=== PATIENT | female | born 1970 | race African-American/Black ===

== ENCOUNTER 2018-12-01 10:40 | Emergency (ER) | payer MEDICAID ==
[~2018-12-01] VITALS: Ht 182.9 cm; Wt 106.0 kg
[2018-12-01 11:38] LABS: CLARITY URINE CLEAR (CLEAR); COLOR URINE YELLOW (YELLOW); KETONES URINE NEGATIVE (NEGATIVE); LEUKOCYTE ESTERASE URINE NEGATIVE (NEGATIVE); NITRITE URINE NEGATIVE (NEGATIVE); OCCULT BLOOD URINE NEGATIVE (NEGATIVE); PROTEIN URINE NEGATIVE (NEGATIVE); SPECIFIC GRAVITY URINE 1.024 (1.005-1.030); UROBILINOGEN URINE 0.2 E.U./dL (0.2-1.0)
[2018-12-01 12:58] LABS: BASOPHILS % 0.9 % (0.0-2.0); EOSINOPHILS % 2.1 % (0.0-5.0); HEMATOCRIT. 38.1 % (36.0-48.0); HEMOGLOBIN. 12.7 g/dL (12.0-16.0); MEAN CORPUSCULAR VOLUME 81.2 fL (81.0-99.0); MONOCYTES % 6.1 % (2.0-8.0); NEUTROPHILS % 60.9 % (40.0-76.0); PLATELET 217 x1000/uL (130-400); RED BLOOD CELL COUNT 4.69 mill/uL (4.2-5.4); RED CELL DISTRIBUTION WIDTH 14.2 % (11.6-14.6)
[2018-12-01 13:06] LABS: CHLORIDE 108 mEq/L (98-107)
[2018-12-01 13:39] VITALS: BP 121/83
== END 2018-12-01 13:41 | disposition home or self-care (01) ==
LOC: ER 11:04
DX: R10.9 Unspecified abdominal pain (principal)
CPT/HCPCS: 36415; 76770; 80048; 81025; 99284

== ENCOUNTER 2020-06-02 08:57 | Inpatient (IN) | payer MEDICAID ==
[~2020-06-02] VITALS: Ht 182.9 cm; Wt 97.5 kg
[2020-06-02 10:01] LABS: BASOPHILS % 0.6 % (0.0-2.0); EOSINOPHILS % 0.3 % (0.0-5.0); HEMATOCRIT. 43.1 % (36.0-48.0); HEMOGLOBIN. 14.5 g/dL (12.0-16.0); LYMPHOCYTES % 18.7 % (20.0-50.0); MEAN CORPUSCULAR HEMOGLOBIN 27.5 pg (28.0-32.0); MEAN PLATELET VOLUME 9.3 fl (7.4-10.4); MONOCYTES % 4.8 % (2.0-8.0); NEUTROPHILS % 75.6 % (40.0-76.0); PLATELET 245 x1000/uL (130-400); RED BLOOD CELL COUNT 5.26 mill/uL (4.2-5.4); RED CELL DISTRIBUTION WIDTH 13.4 % (11.6-14.6)
[2020-06-02 10:14] LABS: PROTHROMBIN TIME 10.9 sec (9.6-11.0)
[2020-06-02 10:16] LABS: CHLORIDE 108 mEq/L (98-107)
[2020-06-02 10:24] LABS: CREATINE KINASE 124 IU/L (26-192)
[2020-06-02] MEDS ORDERED: IBUPROFEN 600MG TABLET PO ONE (11:15)
[2020-06-02 11:23] LABS: CLARITY URINE CLEAR (CLEAR); COLOR URINE YELLOW (YELLOW); KETONES URINE 1+ (NEGATIVE); LEUKOCYTE ESTERASE URINE NEGATIVE (NEGATIVE); NITRITE URINE NEGATIVE (NEGATIVE); OCCULT BLOOD URINE NEGATIVE (NEGATIVE); PROTEIN URINE NEGATIVE (NEGATIVE); SPECIFIC GRAVITY URINE 1.015 (1.005-1.030); UROBILINOGEN URINE 0.2 E.U./dL (0.2-1.0)
[2020-06-02] MEDS ORDERED: CYCLOBENZAPRINE 10MG TABLET PO ONE (12:15)
[2020-06-02] MEDS ORDERED: MORPHINE SULFATE 2 MG/ML CPJ (NOT FOR IM USE) IV ONE (14:00)
[2020-06-02] MEDS ORDERED: KETOROLAC 30MG/ML VIAL IV ONE (14:00)
[2020-06-02] MEDS ORDERED: CLONIDINE 0.1MG TABLET PO PRN (16:15)
[2020-06-02] MEDS ORDERED: DIPHENHYDRAMINE 50MG/ML VIAL IV PRN (16:15)
[2020-06-02] MEDS ORDERED: ONDANSETRON HCL 4MG/2ML INJ IV PRN (16:15)
[2020-06-02 17:12] LABS: PHOSPHORUS 3.4 mg/dL (2.5-4.9)
[2020-06-02 22:00] VITALS: BP 134/77
[2020-06-02 23:00] VITALS: BP 134/77
[2020-06-02] MEDS: MORPHINE SULFATE 2 MG/ML CPJ (NOT FOR IM USE) IV PRN (23:19)
[2020-06-03 04:00] VITALS: BP 124/82
[2020-06-03 07:35] LABS: BASOPHILS % 0.8 % (0.0-2.0); EOSINOPHILS % 0.5 % (0.0-5.0); HEMATOCRIT. 42.1 % (36.0-48.0); HEMOGLOBIN. 14.4 g/dL (12.0-16.0); LYMPHOCYTES % 30.3 % (20.0-50.0); MEAN CORPUSCULAR HEMOGLOBIN 27.6 pg (28.0-32.0); MEAN CORPUSCULAR VOLUME 80.9 fL (81.0-99.0); MEAN PLATELET VOLUME 8.7 fl (7.4-10.4); MONOCYTES % 7.1 % (2.0-8.0); NEUTROPHILS % 61.3 % (40.0-76.0); PLATELET 255 x1000/uL (130-400); RED BLOOD CELL COUNT 5.21 mill/uL (4.2-5.4); RED CELL DISTRIBUTION WIDTH 13.3 % (11.6-14.6)
[2020-06-03 08:00] VITALS: BP 144/91
[2020-06-03] MEDS: MORPHINE SULFATE 2 MG/ML CPJ (NOT FOR IM USE) IV PRN ×2 (08:45→22:50)
[2020-06-03 09:20] LABS: CHLORIDE 105 mEq/L (98-107)
[2020-06-03 09:32] LABS: LDL CHOLESTEROL 150 mg/dL (5-100)
[2020-06-03 09:34] LABS: HDL CHOLESTEROL 45 mg/dL (40-59)
[2020-06-03 12:00] VITALS: BP 131/84
[2020-06-03 16:00] VITALS: BP 153/91
[2020-06-03] MEDS: ACETAMINOPHEN 325MG TABLET PO PRN (17:56)
[2020-06-03 20:00] VITALS: BP 133/85
[2020-06-04] VITALS: BP 130/79
[2020-06-04 04:00] VITALS: BP 123/82
[2020-06-04 08:00] VITALS: BP 146/84
[2020-06-04] MEDS: MORPHINE SULFATE 2 MG/ML CPJ (NOT FOR IM USE) IV PRN ×3 (09:44→23:01)
[2020-06-04] MEDS: CYCLOBENZAPRINE 10MG TABLET PO SCH ×3 (09:44→21:57)
[2020-06-04 12:00] VITALS: BP 110/83
[2020-06-04 16:00] VITALS: BP 121/84
[2020-06-04 20:00] VITALS: BP 114/71
[2020-06-05 04:00] VITALS: BP 112/85
[2020-06-05] MEDS: CYCLOBENZAPRINE 10MG TABLET PO SCH ×3 (06:12→21:04)
[2020-06-05 07:05] LABS: BASOPHILS % 0.8 % (0.0-2.0); EOSINOPHILS % 0.7 % (0.0-5.0); HEMATOCRIT. 44.5 % (36.0-48.0); HEMOGLOBIN. 15.2 g/dL (12.0-16.0); LYMPHOCYTES % 33.4 % (20.0-50.0); MEAN CORPUSCULAR HEMOGLOBIN 27.8 pg (28.0-32.0); MEAN CORPUSCULAR VOLUME 81.3 fL (81.0-99.0); MEAN PLATELET VOLUME 8.7 fl (7.4-10.4); MONOCYTES % 6.7 % (2.0-8.0); NEUTROPHILS % 58.4 % (40.0-76.0); PLATELET 256 x1000/uL (130-400); RED BLOOD CELL COUNT 5.48 mill/uL (4.2-5.4); RED CELL DISTRIBUTION WIDTH 13.1 % (11.6-14.6)
[2020-06-05 07:47] LABS: CHLORIDE 106 mEq/L (98-107)
[2020-06-05] MEDS: MORPHINE SULFATE 2 MG/ML CPJ (NOT FOR IM USE) IV PRN ×2 (07:53→12:02)
[2020-06-05] MEDS ORDERED: CYCL10TA7 PO (11:08)
[2020-06-05] MEDS ORDERED: HYDR-4001 MT (11:08)
[2020-06-05] MEDS ORDERED: ATOR10TA69 MT (11:08)
[2020-06-05] MEDS ORDERED: LORAZEPAM 1MG TABLET PO NR (14:54)
[2020-06-05] MEDS: DEXAMETHASONE 4MG/ML 1ML VIAL IV SCH ×2 (17:30→23:30)
[2020-06-05 20:00] VITALS: BP 103/73
[2020-06-06] VITALS: BP 114/71
[2020-06-06 04:00] VITALS: BP 118/83
[2020-06-06] MEDS: CYCLOBENZAPRINE 10MG TABLET PO SCH ×2 (05:45→13:32)
[2020-06-06] MEDS: DEXAMETHASONE 4MG/ML 1ML VIAL IV SCH ×2 (05:45→11:54)
[2020-06-06] MEDS: ACETAMINOPHEN 325MG TABLET PO PRN (05:58)
[2020-06-06 06:51] LABS: BASOPHILS % 0.2 % (0.0-2.0); HEMATOCRIT. 46.5 % (36.0-48.0); HEMOGLOBIN. 15.5 g/dL (12.0-16.0); LYMPHOCYTES % 16.1 % (20.0-50.0); MEAN CORPUSCULAR HEMOGLOBIN 27.5 pg (28.0-32.0); MEAN CORPUSCULAR VOLUME 82.3 fL (81.0-99.0); MEAN PLATELET VOLUME 8.8 fl (7.4-10.4); MONOCYTES % 1.4 % (2.0-8.0); NEUTROPHILS % 82.3 % (40.0-76.0); PLATELET 269 x1000/uL (130-400); RED BLOOD CELL COUNT 5.65 mill/uL (4.2-5.4); RED CELL DISTRIBUTION WIDTH 13.4 % (11.6-14.6)
[2020-06-06 06:54] LABS: CHLORIDE 103 mEq/L (98-107)
[2020-06-06 12:00] VITALS: BP 114/78
[2020-06-06] MEDS ORDERED: MED4 MT (15:07)
[2020-06-06 16:04] VITALS: BP 107/74
== END 2020-06-06 16:49 | disposition home or self-care (01) | DRG 347 ==
LOC: ER 08:57 → 6EST 15:48 → EDBEDREQ 15:56 → ENRESERV 20:03
PROVIDERS: ADMIT Internal Medicine; ATTEND Internal Medicine
DX: M54.32 Sciatica, left side (principal); M48.07 Spinal stenosis, lumbosacral region; M51.36 Other intervertebral disc degeneration, lumbar region; E78.00 Pure hypercholesterolemia, unspecified; R26.9 Unspecified abnormalities of gait and mobility
CPT/HCPCS: 36415; 72131; 72141; 72148; 73521; 80048; 80053; 80061; 81003; 82550; 83735; 84100; 84443; 85025; 93970; 96374; 97116; 97162; 97166; 97530; 97535; 99285; J1100; J2270

== ENCOUNTER 2020-06-07 20:58 | Inpatient (IN) | payer MEDICAID ==
[~2020-06-07] VITALS: Ht 182.9 cm; Wt 95.3 kg
[~2020-06-07 20:58] MED LIST: ATOR10TA69 MT; CYCL10TA7 PO; HYDR-4001 MT; MED4 MT
[2020-06-07] MEDS ORDERED: SODIUM CHLORIDE 0.9% 1,000 ML IV ONE (23:01)
[2020-06-07] MEDS ORDERED: ONDANSETRON HCL 4MG/2ML INJ IV STA (23:01)
[2020-06-07] MEDS ORDERED: MORPHINE SULFATE 4 MG/ML CPJ (NOT FOR IM USE) IV STA (23:01)
[2020-06-07 23:31] LABS: BASOPHILS % 0.4 % (0.0-2.0); EOSINOPHILS % 0.1 % (0.0-5.0); HEMATOCRIT. 40.3 % (36.0-48.0); HEMOGLOBIN. 13.8 g/dL (12.0-16.0); LYMPHOCYTES % 25.9 % (20.0-50.0); MEAN CORPUSCULAR HEMOGLOBIN 27.9 pg (28.0-32.0); MEAN CORPUSCULAR VOLUME 81.2 fL (81.0-99.0); MEAN PLATELET VOLUME 8.6 fl (7.4-10.4); NEUTROPHILS % 67.6 % (40.0-76.0); PLATELET 247 x1000/uL (130-400); RED BLOOD CELL COUNT 4.95 mill/uL (4.2-5.4); RED CELL DISTRIBUTION WIDTH 13.3 % (11.6-14.6)
[2020-06-07 23:33] LABS: CHLORIDE 100 mEq/L (98-107)
[2020-06-07] MEDS ORDERED: POTASSIUM CHLORIDE 20MEQ TABLET SR PO ONE (23:45)
[2020-06-07 23:47] LABS: PARTIAL THROMBOPLASTIN TIME 23.5 sec (23.4-31.0); PROTHROMBIN TIME 10.8 sec (9.6-11.0)
[2020-06-07 23:54] LABS: HCG SCREEN NEGATIVE
[2020-06-08] MEDS ORDERED: ONDANSETRON HCL 4MG/2ML INJ IV STA (00:48)
[2020-06-08] MEDS ORDERED: MORPHINE SULFATE 4 MG/ML CPJ (NOT FOR IM USE) IV STA (00:48)
[2020-06-08 00:59] LABS: CLARITY URINE CLEAR (CLEAR); COLOR URINE YELLOW (YELLOW); KETONES URINE NEGATIVE (NEGATIVE); LEUKOCYTE ESTERASE URINE 1+ (NEGATIVE); NITRITE URINE NEGATIVE (NEGATIVE); OCCULT BLOOD URINE NEGATIVE (NEGATIVE); PROTEIN URINE NEGATIVE (NEGATIVE); SPECIFIC GRAVITY URINE 1.016 (1.005-1.030); UROBILINOGEN URINE 0.2 E.U./dL (0.2-1.0)
[2020-06-08] MEDS ORDERED: CEFTRIAXONE 1 G PREMIX 50 ML IV ONE (01:30)
[2020-06-08] MEDS ORDERED: ONDANSETRON HCL 4MG/2ML INJ IV PRN (10:45)
[2020-06-08] MEDS ORDERED: HYDROCODONE/ACETAMINOPHEN 10/325MG TABLET PO PRN (10:45)
[2020-06-08] MEDS ORDERED: ACETAMINOPHEN 325MG TABLET PO PRN (10:45)
[2020-06-08] MEDS ORDERED: KETOROLAC 30MG/ML VIAL IV PRN (17:15)
[2020-06-08] MEDS: OXYCODONE HCL/ACETAMINOPHEN 5/325MG TABLET PO PRN ×2 (17:26→23:27)
[2020-06-08] MEDS: DEXAMETHASONE 4MG/ML 1ML VIAL IV SCH (18:12)
[2020-06-08 22:00] VITALS: BP 119/79
[2020-06-09] MEDS ORDERED: CEFTRIAXONE 1 G PREMIX 50 ML IV SCH (02:00)
[2020-06-09] MEDS: CEFTRIAXONE 1 G PREMIX 50 ML IV SCH (02:15)
[2020-06-09] MEDS: DEXAMETHASONE 4MG/ML 1ML VIAL IV SCH ×4 (02:15→17:43)
[2020-06-09 02:39] LABS: *AMPHETAMINES SCREEN URINE NEGATIVE (NEGATIVE); *BARBITURATES SCREEN URINE NEGATIVE (NEGATIVE); *BENZODIAZEPINES SCREEN URINE NEGATIVE (NEGATIVE); *COCAINE SCREEN URINE NEGATIVE (NEGATIVE); METHADONE URINE SCREEN NEGATIVE (NEGATIVE)
[2020-06-09 02:40] LABS: CANNABINOID URINE SCREEN PRESUMTIVE POSITIVE (NEGATIVE); OPIATES URINE SCREEN PRESUMTIVE POSITIVE (NEGATIVE); PHENCYCLIDINE URINE SCREEN NEGATIVE (NEGATIVE)
[2020-06-09 04:00] VITALS: BP 131/89
[2020-06-09] MEDS: OXYCODONE HCL/ACETAMINOPHEN 5/325MG TABLET PO PRN ×3 (04:16→19:20)
[2020-06-09 07:18] LABS: BASOPHILS % 0.1 % (0.0-2.0); HEMATOCRIT. 41.3 % (36.0-48.0); HEMOGLOBIN. 13.7 g/dL (12.0-16.0); LYMPHOCYTES % 11.3 % (20.0-50.0); MEAN CORPUSCULAR HEMOGLOBIN 27.3 pg (28.0-32.0); MEAN CORPUSCULAR VOLUME 82.2 fL (81.0-99.0); MEAN PLATELET VOLUME 9.1 fl (7.4-10.4); MONOCYTES % 1.9 % (2.0-8.0); NEUTROPHILS % 86.7 % (40.0-76.0); PLATELET 249 x1000/uL (130-400); RED BLOOD CELL COUNT 5.02 mill/uL (4.2-5.4); RED CELL DISTRIBUTION WIDTH 13.4 % (11.6-14.6)
[2020-06-09 07:52] LABS: CHLORIDE 105 mEq/L (98-107)
[2020-06-09] MEDS: ENOXAPARIN 30MG/0.3ML SYR SUBCUT SCH ×2 (09:00→21:09)
[2020-06-09 12:00] VITALS: BP 114/70
[2020-06-09 20:00] VITALS: BP 143/102
[2020-06-10] VITALS: BP 127/85
[2020-06-10] MEDS: CEFTRIAXONE 1 G PREMIX 50 ML IV SCH (01:58)
[2020-06-10] MEDS: OXYCODONE HCL/ACETAMINOPHEN 5/325MG TABLET PO PRN ×5 (01:59→20:42)
[2020-06-10 04:00] VITALS: BP 124/86
[2020-06-10 06:13] LABS: CHLORIDE 105 mEq/L (98-107)
[2020-06-10 06:14] LABS: BASOPHILS % 0.1 % (0.0-2.0); HEMATOCRIT. 41.1 % (36.0-48.0); HEMOGLOBIN. 13.6 g/dL (12.0-16.0); LYMPHOCYTES % 12.6 % (20.0-50.0); MEAN CORPUSCULAR HEMOGLOBIN 26.9 pg (28.0-32.0); MEAN CORPUSCULAR VOLUME 81.2 fL (81.0-99.0); MEAN PLATELET VOLUME 8.6 fl (7.4-10.4); NEUTROPHILS % 83.3 % (40.0-76.0); PLATELET 263 x1000/uL (130-400); RED BLOOD CELL COUNT 5.07 mill/uL (4.2-5.4); RED CELL DISTRIBUTION WIDTH 13.4 % (11.6-14.6)
[2020-06-10 08:00] VITALS: BP 112/73
[2020-06-10] MEDS: ENOXAPARIN 30MG/0.3ML SYR SUBCUT SCH ×2 (08:53→20:43)
[2020-06-10] MEDS: POLYETHYLENE GLYCOL 3350 (17GM) 1 DOSE PACK PO SCH (10:35)
[2020-06-10 12:00] VITALS: BP 114/80
[2020-06-10] MEDS ORDERED: MAGNESIUM CITRATE 300ML SOLUTION PO PRN (13:30)
[2020-06-10 16:00] VITALS: BP 116/69
[2020-06-10 20:00] VITALS: BP_SYST 100; BP_SYST 117; BP_DIAS 64; BP_DIAS 86
[2020-06-11] VITALS: BP 113/79
[2020-06-11] MEDS: OXYCODONE HCL/ACETAMINOPHEN 5/325MG TABLET PO PRN ×4 (01:50→19:46)
[2020-06-11 04:00] VITALS: BP 113/76
[2020-06-11 08:00] VITALS: BP 112/74
[2020-06-11] MEDS: ENOXAPARIN 30MG/0.3ML SYR SUBCUT SCH ×2 (09:10→19:45)
[2020-06-11] MEDS: POLYETHYLENE GLYCOL 3350 (17GM) 1 DOSE PACK PO SCH (09:10)
[2020-06-11 12:00] VITALS: BP 113/77
[2020-06-11] MEDS ORDERED: MAGNESIUM CITRATE 300ML SOLUTION PO SCH (13:00)
[2020-06-11 16:00] VITALS: BP 128/82
[2020-06-11 20:00] VITALS: BP 116/84
[2020-06-12 04:00] VITALS: BP 127/79
[2020-06-12] MEDS: OXYCODONE HCL/ACETAMINOPHEN 5/325MG TABLET PO PRN ×2 (04:06→09:07)
[2020-06-12 08:00] VITALS: BP 108/67
[2020-06-12] MEDS: POLYETHYLENE GLYCOL 3350 (17GM) 1 DOSE PACK PO SCH (09:05)
[2020-06-12] MEDS: ENOXAPARIN 30MG/0.3ML SYR SUBCUT SCH ×2 (09:06→20:53)
[2020-06-12 12:00] VITALS: BP 107/78
[2020-06-12] MEDS ORDERED: BISACODYL 5MG TABLET PO SCH (12:00)
[2020-06-12 16:00] VITALS: BP 123/83
[2020-06-12 20:00] VITALS: BP 114/72
[2020-06-13] VITALS: BP 114/79
[2020-06-13] MEDS: OXYCODONE HCL/ACETAMINOPHEN 5/325MG TABLET PO PRN (01:24)
[2020-06-13 04:00] VITALS: BP 112/81
[2020-06-13 08:00] VITALS: BP 124/75
[2020-06-13] MEDS: POLYETHYLENE GLYCOL 3350 (17GM) 1 DOSE PACK PO SCH (09:56)
[2020-06-13] MEDS: ENOXAPARIN 30MG/0.3ML SYR SUBCUT SCH (09:57)
[2020-06-13] MEDS ORDERED: OXYC-523 PO (11:22)
[2020-06-13] MEDS ORDERED: ACET650S27 RC (11:22)
[2020-06-13] MEDS ORDERED: POLY17PO3 MT (11:22)
[2020-06-13 12:00] VITALS: BP 126/73
[2020-06-13 13:13] VITALS: BP 126/73
== END 2020-06-13 14:25 | disposition home health service (06) | DRG 720 ==
LOC: ER 20:58 → EDBEDREQ 06-08 02:10 → EDBEDREQSVC 06-08 02:10 → EDBEDREQTM 06-08 02:10 → ENRESERV 06-08 21:01 → 6EST 06-08 22:08
PROVIDERS: ADMIT Internal Medicine; ATTEND Internal Medicine
DX: A41.9 Sepsis, unspecified organism (principal); M48.061 Spinal stenosis, lumbar region without neurogenic claudication; E87.1 Hypo-osmolality and hyponatremia; E87.6 Hypokalemia; N39.0 Urinary tract infection, site not specified; M51.16 Intervertebral disc disorders with radiculopathy, lumbar region; G83.4 Cauda equina syndrome; M25.78 Osteophyte, vertebrae; M51.17 Intervertebral disc disorders with radiculopathy, lumbosacral region; Z79.899 Other long term (current) drug therapy
CPT/HCPCS: 36415; 71045; 72148; 80048; 80053; 80305; 81003; 84484; 84703; 85025; 86850; 86900; 93005; 97116; 97162; 99285; J0696; J1100; J1650; J1885; J2270; J2405; J7030